=== PATIENT | female | born 1935 | race Caucasian/White ===

== ENCOUNTER 2018-02-21 17:46 | Emergency (ER) | payer MEDICARE, OTHER ==
[~2018-02-21] VITALS: Ht 152.4 cm; Wt 47.0 kg
[~2018-02-21 17:46] MED LIST: ACET1TAB64 PO; CALC1TAB72 PO; CITA40TA12 PO; DIGO125T PO; ESTR0.45 PO; L-THYROXINE PO; LACT1CAP35 PO; LISI5TAB7 PO; LOPE2CAP94 PO; METH4TAB PO; METO50TA4 PO; MULT-658 PO; POTA8CAP PO
[2018-02-21 19:31] VITALS: BP 147/46
[2018-02-21] MEDS ORDERED: HYDROcodone/APAP 10/325 MG TABLET PO ONE (20:00)
[2018-02-21] MEDS ORDERED: HYDROcodone/APAP 10/325 MG TABLET ONE (20:04)
== END 2018-02-21 20:22 | disposition home or self-care (01) ==
LOC: ED 19:55
DX: S33.5XXA Sprain of ligaments of lumbar spine, initial encounter (principal); M25.552 Pain in left hip; I10 Essential (primary) hypertension; E03.9 Hypothyroidism, unspecified; I34.1 Nonrheumatic mitral (valve) prolapse; W01.0XXA Fall on same level from slipping, tripping and stumbling without subsequent striking against object, initial encounter; Y93.89 Activity, other specified; Y92.009 Unspecified place in unspecified non-institutional (private) residence as the place of occurrence of the external cause; Y99.8 Other external cause status
CPT/HCPCS: 72110; 93005; 99284